=== PATIENT | male | born 1975 | race African-American/Black ===

== ENCOUNTER 2023-07-13 07:50 | Emergency (ER) | payer MEDICAID, OTHER ==
[~2023-07-13] VITALS: Ht 193 cm; Wt 73.0 kg
[~2023-07-13 07:50] MED LIST: NAP5EC PO; OMEPRAZOLE
[2023-07-13 08:04] VITALS: TEMP 98.5; O2SAT 99
[2023-07-13 08:30] VITALS: BP 123/72; PULSE 68; RESP 18
[2023-07-13] MEDS ORDERED: KETOROLAC 60MG/2ML VIAL IM ONE (08:30)
== END 2023-07-13 10:33 | disposition home or self-care (01) ==
LOC: ER 07:50
DX: L03.211 Cellulitis of face (principal); J45.909 Unspecified asthma, uncomplicated
CPT/HCPCS: 99285; 70486; 96372; J1885

== ENCOUNTER 2025-11-01 01:35 | Emergency (ER) | payer MEDICAID ==
[~2025-11-01] VITALS: Ht 193 cm; Wt 72.8 kg
[~2025-11-01 01:35] MED LIST changes: -NAP5EC PO; +NAPR-1495 PO
[2025-11-01] MEDS: KETOROLAC 15MG/ML VIAL IV ONE (03:15)
[2025-11-01] MEDS: MORPHINE SULFATE 4 MG/ML INJ (FOR IV/IM USE) IV ONE (03:15)
[2025-11-01] MEDS ORDERED: PROPOFOL 200MG/20ML VIAL IV ONE (04:15)
[2025-11-01 05:10] VITALS: O2SAT 100
[2025-11-01] MEDS: PROPOFOL 200MG/20ML VIAL IV ONE (05:48)
[2025-11-01] MEDS ORDERED: IBUP-1455 MT (06:23)
[2025-11-01] MEDS ORDERED: HYDR-4001 MT (06:23)
[2025-11-01 06:35] VITALS: BP 111/66; PULSE 71; RESP 15; TEMP 36.7; O2SAT 99
== END 2025-11-01 06:47 | disposition home or self-care (01) ==
LOC: ER 01:35
DX: S52.592A Other fractures of lower end of left radius, initial encounter for closed fracture (principal); J45.909 Unspecified asthma, uncomplicated; F17.200 Nicotine dependence, unspecified, uncomplicated; Z88.0 Allergy status to penicillin; X58.XXXA Exposure to other specified factors, initial encounter; Y93.89 Activity, other specified; Y92.89 Other specified places as the place of occurrence of the external cause; Y99.8 Other external cause status
CPT/HCPCS: 25605; 73100; 73110; 96374; 96375; 99152; 99285; J1885; J2704; J2270; A4615

== ENCOUNTER 2025-11-02 13:47 | Emergency (ER) | payer MEDICAID ==
[~2025-11-02] VITALS: Ht 193 cm; Wt 74.0 kg
[~2025-11-02 13:47] MED LIST changes: +HYDR-4001 MT; +IBUP-1455 MT
[2025-11-02 13:58] VITALS: TEMP 36.7; O2SAT 98
[2025-11-02 16:54] VITALS: BP 138/84; PULSE 66; RESP 14; O2SAT 100
== END 2025-11-02 16:55 | disposition home or self-care (01) ==
LOC: ER 14:37
DX: S52.502A Unspecified fracture of the lower end of left radius, initial encounter for closed fracture (principal); J45.909 Unspecified asthma, uncomplicated; Z88.0 Allergy status to penicillin; X58.XXXA Exposure to other specified factors, initial encounter; Y93.89 Activity, other specified; Y92.89 Other specified places as the place of occurrence of the external cause; Y99.8 Other external cause status
CPT/HCPCS: 29125; 99283